=== PATIENT | male | born 1935 | race Caucasian/White ===

== ENCOUNTER 2022-05-23 05:20 | Emergency (ER) | payer MEDICARE ==
[~2022-05-23] VITALS: Ht 175.3 cm; Wt 108.8 kg
[2022-05-23] VITALS (15 sets, daily range): BP systolic 115–210; BP diastolic 70–122
[2022-05-23 06:01] LABS: BASO% 0.8 % (0-3); EOS% 6.5 % (0-8); HEMOGLOBIN 11.9 g/dl (14.0-18.0); LYMPH% 11.5 % (15-41); MEAN CELL VOLUME 106.4 fL CALC (80.0-100.0); MEAN CORPUSCULAR HGB 33.3 pG CALC (26.0-32.0); MEAN CORPUSCULAR HGB CONC 31.3 g/dL CAL (32.0-36.0); MONO% 6.1 % (2-13); NEUT# 4.83 thou/uL (1.82-7.42); NEUT% 75.1 % (42-76); RED BLOOD COUNT 3.57 mill/uL (4.70-6.10); RED CELL DISTRI WIDTH 15.4 % (11.5-15.5)
[2022-05-23] MEDS ORDERED: LEVOTHYROXIN125 MCG PO (06:06)
[2022-05-23] MEDS ORDERED: ALLOPURINOL100 MG PO (06:08)
[2022-05-23] MEDS ORDERED: CALCITRIOL0.25 MC1 PO (06:08)
[2022-05-23] MEDS ORDERED: CARVEDILOL25 MG PO (06:10)
[2022-05-23] MEDS ORDERED: LISINOPRIL10 MG PO (06:10)
[2022-05-23] MEDS ORDERED: GLIMEPIRIDE2 MG PO (06:10)
[2022-05-23 06:16] LABS: CREATININE 6.2 mg/dL (0.7-1.3); POTASSIUM 5.3 mmol/l (3.5-5.1)
[2022-05-23 06:26] LABS: URINE BILIRUBIN - DIPSTICK NEGATIVE (NEGATIVE); URINE BLOOD DIPSTICK SMALL (NEGATIVE); URINE COLOR YELLOW; URINE GLUCOSE - DIPSTICK 100 mg/dL (NEGATIVE); URINE KETONE NEGATIVE (NEGATIVE); URINE LEUK ESTERASE NEGATIVE (NEGATIVE); URINE PH 6.5 (4.5-8.0); URINE PROTEIN - DIPSTICK 100 mg/dL (NEG-TRACE); URINE UROBILINOGEN - DIPSTICK 0.2 E.U./dL (0.2)
[2022-05-23 06:31] LABS: URINE NITRITE - DIPSTICK NEGATIVE (Negative)
[2022-05-23 06:33] LABS: TSH, 3RD GENERATION 7.47 uIU/mL (0.47 - 4.68)
[2022-05-23 06:40] LABS: URINE SQUAMOUS EPITHELIAL CELL FEW EPI/hpf (0-FEW); URINE WBC 0-2 WBC/hpf (0-5)
== END 2022-05-23 09:16 | disposition home or self-care (01) ==
LOC: ED 05:20
PROVIDERS: Family Medicine
DX: E11.649 Type 2 diabetes mellitus with hypoglycemia without coma (principal); E11.22 Type 2 diabetes mellitus with diabetic chronic kidney disease; I12.0 Hypertensive chronic kidney disease with stage 5 chronic kidney disease or end stage renal disease; N18.5 Chronic kidney disease, stage 5; Z79.84 Long term (current) use of oral hypoglycemic drugs